=== PATIENT | male | born 1955 | race Caucasian/White ===

== ENCOUNTER → 2020-06-21 08:41 | Outpatient (CLI) | payer MEDICARE, OTHER, SELFPAY ==
--- NOTE | 2020-06-21 | DI.MRI.S_ITS ---
PROCEDURE: MR HIP RT WO CON INDICATIONS: Pain in right lower leg TECHNIQUE: Noncontrast coronal T1 spin echo and STIR through the bony pelvis. Coronal and axial T2 fast spin echo with fat saturation, sagittal T1 spin echo, and oblique axial T2 fast spin echo with fat saturation through the hip. COMPARISON: None. FINDINGS: Image quality: Excellent. Bones and joints: Bone marrow of the pelvic ring and proximal femurs show normal signal throughout. No intraosseous lesions or fractures. No avascular necrosis of the femoral heads. The visualized lower lumbar spine appears normally aligned. Tendons and ligaments: The gluteus medius and minimus tendons appear intact, without associated muscle atrophy. The nearby proximal iliotibial band also appears intact. The iliopsoas tendon appears intact, without adjacent bursal fluid collections or evidence for impingement syndrome. The origin of the hamstring tendon is intact at the ischial tuberosity, as well as the associated sacrotuberous ligament. There is mild T2 signal elevation within the conjoined tendon at the ischial origin. The straight and reflected heads of the rectus femoris muscle origin appear intact, as well as the conjoint tendon. The ligamentum teres appears intact where visualized. Labrum and cartilage: Linear high T2 signal intensity traverses the anterosuperior labrum (series 7, image 12). Cartilage surface of the femoral head appears of normal thickness. The alpha angle of the femur is within normal limits at less than 55 degrees. Soft tissues: Visualized muscles demonstrate normal bulk and internal signal. Quadratus femoris muscle demonstrates no internal edema to suggest ischiofemoral impingement. The proximal sciatic neurovascular bundle appears normal adjacent to the hamstring tendons. No free pelvic fluid. Bladder wall thickness is normal. Genitourinary structures and bowel loops appear normal where visualized. IMPRESSION: 1. Mild ischiitis. 2. No fracture or osseous lesion. 3. Anterosuperior glenoid labral tear. Dictated by: Italo Sheppard M.D. on 06/21/2020 at 10:18 Approved by: Italo Sheppard M.D. on 06/21/2020 at 10:21
== END ==
PROVIDERS: PCP Physician Assistant; Referring Provider Internal Medicine; Visit Provider Internal Medicine
DX: M79.661 Pain in right lower leg (principal); S73.191A Other sprain of right hip, initial encounter; M25.851 Other specified joint disorders, right hip
CPT/HCPCS: 73721

== ENCOUNTER 2020-10-28 10:56 | Emergency (ER) | payer MEDICARE, OTHER, SELFPAY ==
[2020-10-28] VITALS (15 sets, daily range): BP systolic 114–136; BP diastolic 79–92; PULSE 68–83; RESP 12–16; TEMP 36.4; O2SAT 95–100
--- NOTE | 2020-10-28 11:09 | ED_ITS ---
HPI - Extremity Problem General Chief complaint: Extremity Problem,Nontraumatic Stated complaint: clemente leg pain Time Seen by Provider: 10/28/20 11:06 Source: patient and EMS Mode of arrival: EMS Limitations: no limitations History of Present Illness HPI Narrative: Patient is a 65-year-old male who has had progressive leg weakness on going for about 3 weeks. He has an LP last week and since then his legs have gotten weaker. Today he tried to get out of bed and was unable to do so. He has had some urinary incontinence as well. He says he thinks he can feel when he needs to go to the restroom but because his legs are so week he does not make it. He feels sharp shooting pains going down his legs bilaterally which are worse with movement and touch. His right leg is worse than his left leg. He states his feet are cold but they have been cold for some time there are not any worse today Related Data Home Medications Medication Instructions Recorded Confirmed ALPRAZOLAM 1 mg PO BID #0 01/09/11 ASPIRIN (Aspirin Low Dose) 81 mg PO #0 01/09/11 Metoprolol Succinate (Toprol Xl) 200 mg PO Q DAY #0 01/09/11 Sertraline Hydrochloride (Zoloft) 100 mg PO Q DAY #0 01/09/11 Simvastatin (Zocor) 20 mg PO HS #0 01/09/11 [MICARDIS] mg PO Q DAY #0 01/09/11 Allergies Allergy/AdvReac Type Severity Reaction Status Date / Time No Known Drug Allergies Allergy Verified 10/28/20 11:04 Review of Systems Review of Systems ROS Unobtainable: All systems reviewed & are unremarkable except as noted in HPI and below Constitutional Constitutional: Denies chills, Denies fever(s), Denies lethargy and Reports weakness Eyes Eyes: Denies change in vision, Denies eye discharge, Denies irritation and Denies loss of vision ENT Ears, Nose, Mouth, and Throat: Denies change in voice, Denies neck pain and Denies sore throat Cardiovascular Cardiovascular: Denies chest pain, Denies irregular heart rhythm, Denies lightheadedness, Denies palpitations, Denies dyspnea, Denies dyspnea on exertion and Denies orthopnea Respiratory Respiratory: Denies cough, Denies dyspnea, Denies dyspnea on exertion and Denies wheezing Gastrointestinal Gastrointestinal: Denies abdominal pain, Reports change in bowel habits (no BM for 4 days), Denies diarrhea, Denies nausea and Denies vomiting Genitourinary Genitourinary: Reports as per HPI and Reports urinary incontinence Genitourinary: Reports as per HPI and Reports urinary incontinence Musculoskeletal Musculoskeletal: Reports abnormal gait, Reports muscle weakness, Denies neck pain and Reports numbness Integumentary/Breasts Skin/Breast: Denies pruritus, Denies erythema, Denies rash and Denies wounds Neurologic Neurologic: Reports abnormal gait, Denies loss of vision, Reports numbness, Reports paresthesias and Reports weakness Endocrine Endocrine: Denies palpitations Allergic/Immunologic Allergic/Immunologic: Denies wheezing Patient History Social History Smoking Status: Never smoker Smoking Status: Never smoker alcohol intake frequency: 3 or more drinks per day Alcohol type: beer Exam Initial Vital Signs Initial Vital Signs: Vital Signs Temperature 97.6 F 10/28/20 10:59 Pulse Rate 79 10/28/20 10:59 Respiratory Rate 16 10/28/20 10:59 Blood Pressure 132/92 H 10/28/20 10:59 Pulse Oximetry 100 10/28/20 10:59 GENERAL: Well-appearing, well-nourished and in no acute distress. HEENT: Head atraumatic,EOMI, pupils reactive, face symmetric, moist mucous membranes CARDIOVASCULAR: Regular rate and rhythm without murmurs, rubs or gallops. RESPIRATORY: Breath sounds equal bilaterally, no wheezes rales or rhonchi. ABDOMEN: Soft, nontender. Normoactive bowel sounds all 4 quadrants. No guarding or rebound. EXTREMITIES: Normal range of motion, no clubbing or edema. Neurovascularly intact Both feet are extremely cold but he does have palpable pulses. Some sores and c ontusions are noted on feet but no gross bony deformity NEUROLOGICAL: Alert and oriented x4. Significant weakness of the right leg unable to lift off the gurney. Left leg able to barely lift and hold for 5 seconds. Extreme pain with touch bilateral. Hyper reflexive and bilateral lower extremities. Sensation in trunk equal bilaterally SKIN: Warm, dry, no laceration, no petechiae, no rashes or lesions. Course Orders Ordered: ED Orders 10/28/20 11:09 MR lumbar spine wo/w con Stat 10/28/20 11:11 C-Reactive Protein Quant Stat Complete Blood Count AUTO DIFF Stat Comprehensive Metabolic Panel Stat Erythrocyte Sedimentation Rate Stat Partial Thromboplastin Time Stat Prothrombin Time INR Stat 10/28/20 11:32 MR thoracic spine wo/w con Stat 10/28/20 14:47 Consult to [employer] - Trust Operations Assistant Stat Consult to Physical Therapy Evaluate & Treat 10/28/20 14:59 CT head/brain wo con Stat 10/28/20 15:00 COVID19 Stat Discontinued Medications Albuterol (Albuterol Hfa Prepack) 1 box MISC SEEINSTR ONE Stop: 10/28/20 16:00 Vital Signs Vital signs: Vital Signs - 8 hr 10/28/20 10:59 10/28/20 11:00 10/28/20 11:30 Temperature 97.6 F Pulse Rate 79 68 Respiratory Rate 16 Blood Pressure 132/92 H 134/92 H 136/90 Pulse Oximetry 100 95 10/28/20 13:12 10/28/20 13:30 10/28/20 14:00 Temperature Pulse Rate 83 79 73 Respiratory Rate Blood Pressure Pulse Oximetry 96 97 97 10/28/20 14:13 10/28/20 14:30 10/28/20 15:00 Temperature Pulse Rate 79 70 73 Respiratory Rate Blood Pressure 117/82 114/79 121/80 Pulse Oximetry 97 98 97 10/28/20 15:30 10/28/20 16:00 10/28/20 16:30 Temperature Pulse Rate 79 83 79 Respiratory Rate Blood Pressure Pulse Oximetry 95 99 98 10/28/20 17:33 Temperature Pulse Rate 78 Respiratory Rate 14 Blood Pressure 121/80 Pulse Oximetry 96 MDM - Extremity (Nontraumatic) Lab Data Result diagrams: 10/28/20 11:11 10/28/20 11:11 Labs: Lab Results 10/28/20 10/28/20 10/28/20 Range/Units 11:11 11:11 11:11 WBC 6.1 (4.5-11.0) X10^3/uL RBC 4.19 L (4.5-5.9) X10^6/uL Hgb 14.3 (13.5-17.5) g/dL Hct 40.5 L (41-53) % MCV 96.5 (80-100) fL MCH 34.1 H (26-34) PG MCHC 35.4 (30-36) % RDW 12.5 (11.6-14.8) % Plt Count 181 (150-400) X10^3/uL Neut % (Auto) 65.9 (50-75) % Lymph % (Auto) 26.3 (25-40) % [place] % (Auto) 6.3 (3-14) % Eos % (Auto) 0.8 L (2-4) % Baso % (Auto) 0.7 (0-2) % Neut # (Auto) 4000 (8076-8350) /uL Lymph # (Auto) 1600 (1150-8693) /uL [place] # (Auto) 400 (0-900) /uL Eos # (Auto) 0 (0-450) /uL Baso # (Auto) 0 (0-100) /uL ESR (0-15) MM/HR PT 13.1 H (10.1-12.7) SECONDS INR 1.1 (0.9-1.3) APTT 32 (26.4-36.2) SECONDS Sodium 140 (137-145) mmol/L Potassium 3.8 (3.4-5.1) mmol/L Chloride 105 (98-107) mmol/L Carbon Dioxide 28 (22-32) mmol/L BUN 28 H (9-20) mg/dL Creatinine 0.88 (0.66-1.25) mg/dL Estimated GFR > 60.0 (>60) mL/min BUN/Creatinine Ratio 31.8 H (6-22) Glucose 100 (80-110) mg/dL Calcium 9.9 (8.4-10.2) mg/dL Total Bilirubin 0.7 (0.2-1.3) mg/dL AST 27 (17-59) IU/L ALT 23 (<50) IU/L Alkaline Phosphatase 47 (38-126) U/L C-Reactive Protein (<1.0) mg/dL Total Protein 8.1 (6.3-8.2) g/dL Albumin 4.6 (3.5-5.0) g/dL Globulin 3.5 (1.7-4.1) g/dL Albumin/Globulin Ratio 1.3 (1.0-2.8) COVID-19 PCR (Negative) 10/28/20 10/28/20 10/28/20 Range/Units 11:11 11:11 15:00 WBC (4.5-11.0) X10^3/uL RBC (4.5-5.9) X10^6/uL Hgb (13.5-17.5) g/dL Hct (41-53) % MCV (80-100) fL MCH (26-34) PG MCHC (30-36) % RDW (11.6-14.8) % Plt Count (150-400) X10^3/uL Neut % (Auto) (50-75) % Lymph % (Auto) (25-40) % [place] % (Auto) (3-14) % Eos % (Auto) (2-4) % Baso % (Auto) (0-2) % Neut # (Auto) (2859-5255) /uL Lymph # (Auto) (4991-1002) /uL [place] # (Auto) (0-900) /uL Eos # (Auto) (0-450) /uL Baso # (Auto) (0-100) /uL ESR 25 H (0-15) MM/HR PT (10.1-12.7) SECONDS INR (0.9-1.3) APTT (26.4-36.2) SECONDS Sodium (137-145) mmol/L Potassium (3.4-5.1) mmol/L Chloride (98-107) mmol/L Carbon Dioxide (22-32) mmol/L BUN (9-20) mg/dL Creatinine (0.66-1.25) mg/dL Estimated GFR (>60) mL/min BUN/Creatinine Ratio (6-22) Glucose (80-110) mg/dL Calcium (8.4-10.2) mg/dL Total Bilirubin (0.2-1.3) mg/dL AST (17-59) IU/L ALT (<50) IU/L Alkaline Phosphatase (38-126) U/L C-Reactive Protein < 0.5 (<1.0) mg/dL Total Protein (6.3-8.2) g/dL Albumin (3.5-5.0) g/dL Globulin (1.7-4.1) g/dL Albumin/Globulin Ratio (1.0-2.8) COVID-19 PCR Negative (Negative) Urine Dip Bedside Urine Glucose Negative Bedside Urine Bilirubin - Negative Bedside Urine Ketone - Negative Urine Specific [place] 1.025 Bedside Urine Occult Blood - Negative Bedside Urine pH 6.0 Bedside Urine Protein - Negative Bedside Urine Urobilinogen - Negative Bedside Urine Nitrite - Negative Bedside Urine Leukocytes - Negative Esterase Imaging Data MR Lumbar: Radiologist's Impression: PROCEDURE: MR LUMBAR SPINE WO/W CON INDICATIONS: weak legs urinary incontinence with recent LP TECHNIQUE: Noncontrast sagittal T1 spin echo and T2 fast spin echo, sagittal STIR, axial T1 and T2 fast spin echo through the lumbar spine. In cases with scoliosis, additional coronal T2 fast spin echo may be performed. After the administration of contrast, sagittal and axial T1 spin echo with fat saturation through the lumbar spine. COMPARISON: Same day thoracic spine MRI.. FINDINGS: Image quality: Excellent. Alignment and curvature: There is minimal anterolisthesis of L4 on L5 and retrolisthesis of L5 on S1. Marrow: Degenerative-type marrow signal at L5-S1 which is predominantly fatty and sclerotic.. No acute vertebral body compression fractures. No suspicious ma rrow enhancement. Spinal cord: Conus medullaris terminates at the superior aspect of T2 level. Visualized spinal cord demonstrates normal signal, without suspicious enhancement. No evidence of an epidural hematoma or suspicious fluid collection. Paraspinous soft tissues: No paravertebral masses or abnormal enhancement. L1-L2: No significant spinal canal or neural foraminal stenosis. L2-L3: Shallow disc bulging eccentric to the left with mild facet arthropathy and ligamentum flavum hypertrophy resulting in mild spinal canal and lateral recess stenosis. There is mild left and no significant right neural foraminal stenosis. L3-L4: Diffuse disc bulging with facet arthropathy and ligamentum flavum hypertrophy resulting in moderate to marked spinal canal and lateral recess stenosis. There is moderate neural foraminal stenosis bilaterally. L4-L5: There is diffuse disc bulging with facet arthropathy and ligamentum flavum hypertrophy resulting in marked spinal canal and lateral recess stenosis. There is moderate neural foraminal stenosis. L5-S1: Disc bulging with superimposed central to left subarticular disc extrusion with caudal migration resulting in mild left lateral recess stenosis. There is marked left and moderate right neural foraminal stenosis. IMPRESSION: Multilevel lumbar spondylosis as described above. There is marked spinal canal stenosis posterior to L4-5 as well as moderate to marked spinal canal stenosis posterior to L3 with L4 and mild spinal canal stenosis posterior to L2-L3. There is marked left neural foraminal stenosis at L5-S1 with moderate neural foraminal stenosis on the right at L5-S1, bilaterally at L4-L5, L3-L4, and mild left neural foraminal stenosis at L2-L3. Grade 1 anterolisthesis of L4 on L5 and retrolisthesis of L5 on S1. No evidence of epidural hematoma or suspicious soft tissue fluid collection. No acute osseous abnormality or suspicious osseous lesion. Dictated by: Renato Jones D.O. on 10/28/2020 at 13:32 MR Thoracic: Radiologist's Impression: PROCEDURE: MR LUMBAR SPINE WO/W CON INDICATIONS: weak legs urinary incontinence with recent LP TECHNIQUE: Noncontrast sagittal T1 spin echo and T2 fast spin echo, sagittal STIR, axial T1 and T2 fast spin echo through the lumbar spine. In cases with scoliosis, additional coronal T2 fast spin echo may be performed. After the administration of contrast, sagittal and axial T1 spin echo with fat saturation through the lumbar spine. COMPARISON: Same day thoracic spine MRI.. FINDINGS: Image quality: Excellent. Alignment and curvature: There is minimal anterolisthesis of L4 on L5 and retrolisthesis of L5 on S1. Marrow: Degenerative-type marrow signal at L5-S1 which is predominantly fatty and sclerotic.. No acute vertebral body compression fractures. No suspicious marrow enhancement. Spinal cord: Conus medullaris terminates at the superior aspect of T2 level. Visualized spinal cord demonstrates normal signal, without suspicious enhancement. No evidence of an epidural hematoma or suspicious fluid collection. Paraspinous soft tissues: No paravertebral masses or abnormal enhancement. L1-L2: No significant spinal canal or neural foraminal stenosis. L2-L3: Shallow disc bulging eccentric to the left with mild facet arthropathy and ligamentum flavum hypertrophy resulting in mild spinal canal and lateral recess stenosis. There is mild left and no significant right neural foraminal stenosis. L3-L4: Diffuse disc bulging with facet arthropathy and ligamentum flavum hypertrophy resulting in moderate to marked spinal canal and lateral recess stenosis. There is moderate neural foraminal stenosis bilaterally. L4-L5: There is diffuse disc bulging with facet arthropathy and ligamentum flavum hypertrophy resulting in marked spinal canal and lateral recess stenosis. There is moderate neural foraminal stenosis. L5-S1: Disc bulging with superimposed central to left subarticular disc extrusion with caudal migration resulting in mild left lateral recess stenosis. There is marked left and moderate right neural foraminal stenosis. IMPRESSION: Multilevel lumbar spondylosis as described above. There is marked spinal canal stenosis posterior to L4-5 as well as moderate to marked spinal canal stenosis posterior to L3 with L4 and mild spinal canal stenosis posterior to L2-L3. There is marked left neural foraminal stenosis at L5-S1 with moderate neural foraminal stenosis on the right at L5-S1, bilaterally at L4-L5, L3-L4, and mild left neural foraminal stenosis at L2-L3. Grade 1 anterolisthesis of L4 on L5 and retrolisthesis of L5 on S1. No evidence of epidural hematoma or suspicious soft tissue fluid collection. No acute osseous abnormality or suspicious osseous lesion. Dictated by: Renato Jones D.O. on 10/28/2020 at 13:32 CT scan - head: Radiologist's Impression: PROCEDURE: CT HEAD/BRAIN WO CON INDICATIONS: inability to walk TECHNIQUE: Noncontrast 4.5 mm thick angled axial sections acquired from the foramen magnum to the vertex, with coronal and sagittal reformats. For radiation dose reduction, the following was used: automated exposure control, adjustment of mA and/or kV according to patient size. COMPARISON: None. FINDINGS: Image quality: Excellent. CSF spaces: Ventricles and extra-axial CSF spaces are appropriate for patient's age. No focal fluid collection. Brain: No midline shift. No intracranial masses or hemorrhage. Scattered foci of white matter hypoattenuation consistent with microvascular ischemic changes. Cha- white matter interface is normal. Skull and face: Calvarium and visualized facial bones are intact, without suspicious lesions. Sinuses: Visualized sinuses and mastoids are clear. IMPRESSION: Findings suggestive of mild microvascular ischemic changes without evidence of transcortical infarction or other acute intracranial abnormality. Dictated by: Renato Jones D.O. on 10/28/2020 at 14:33 MDM Narrative Medical decision making narrative: Patient lives alone and is clearly unable to ambulate or move his lower extremities. He has pulses in his feet don't think vascular occlusion at this time. He is extremely sensitive to touch she has sharp shooting nerve like pain. This seems to have been progressive decline initially they thought it was MS but due to the history it is not clinically correlate with MS. However over the last 1 week it has expanded actually gotten worse. At this time is unsafe to send patient home. Patient is being followed by a it seems to be Neurology and [facility]oped[facility] at [facility] in [place]. 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 I have updated urine patient's test results and symptoms at this time she recommends talking with Neurosurgery. [id number]-Dr. Olivo neuro surgery reviewed images but did not review chart states no need for any emergent surgery is happy to consult if transferred to [place] [id number] Dr. Gilbert updated on neuro surgery happy to accept Discharge Plan Departure Patient Disposition: [facility] Clinical Impression: Bilateral leg weakness, Spinal stenosis Prescriptions: No Action ALPRAZOLAM 1 mg PO BID Qty: 0 RF: 0 Sertraline Hydrochloride (Zoloft) 100 mg PO Q DAY Qty: 0 RF: 0 Metoprolol Succinate (Toprol Xl) 200 mg PO Q DAY Qty: 0 RF: 0 [MICARDIS] PO Q DAY Qty: 0 RF: 0 Simvastatin (Zocor) 20 mg PO HS Qty: 0 RF: 0 ASPIRIN (Aspirin Low Dose) 81 mg PO Qty: 0 RF: 0
[2020-10-28 11:23] LABS: Add Manual Diff / Slide Review NO; Basophils Absolute Auto 0 /uL (0-100); Basophils Percent Auto 0.7 % (0-2); Eosinophils Absolute Auto 0 /uL (0-450); Eosinophils Percent Auto 0.8 % (2-4); Hematocrit 40.5 % (41-53); Hemoglobin 14.3 g/dL (13.5-17.5); Lymphocytes Absolute Auto 1600 /uL (1100-4500); Lymphocytes Percent Auto 26.3 % (25-40); Mean Corpuscular HGB Conc 35.4 % (30-36); Mean Corpuscular Hemoglobin 34.1 PG (26-34); Mean Corpuscular Volume 96.5 fL (80-100); Monocytes Absolute Auto 400 /uL (0-900); Monocytes Percent Auto 6.3 % (3-14); Neutrophils Absolute Auto 4000 /uL (1500-7000); Neutrophils Percent Auto 65.9 % (50-75); Platelet Count 181 X10^3/uL (150-400); Red Blood Cell Count 4.19 X10^6/uL (4.5-5.9); Red Cell Distribution Width 12.5 % (11.6-14.8); White Blood Cell Count 6.1 X10^3/uL (4.5-11.0)
[2020-10-28 11:26] LABS: INR 1.1 (0.9-1.3); Prothrombin Time 13.1 SECONDS (10.1-12.7)
[2020-10-28 11:29] LABS: PTT Partial Thromboplastin Tim 32 SECONDS (26.4-36.2)
--- NOTE | 2020-10-28 11:32 | DI.MRI.S_ITS ---
PROCEDURE: MR THORACIC SPINE WO/W CON INDICATIONS: numbness in trunk TECHNIQUE: Noncontrast sagittal T1 spin echo and T2 fast spin echo, sagittal STIR, axial T1 and T2 fast spin echo through the thoracic spine. After the administration of contrast, axial and sagittal T1 spin echo with fat saturation through the thoracic spine. COMPARISON: None. FINDINGS: Image quality: Excellent. Alignment and curvature: There is anterolisthesis of C7 on T1 of approximately 6 millimeters. Marrow: There is a T2 and T1 hyperintense lesion within the T10 vertebral body measuring up to 1.5 centimeters in greatest diameter. No adjacent osseous abnormality. In addition there is mild T2 and T1 hyperintensity along the inferior aspect of T12. No acute vertebral body compression fractures. Postsurgical changes of anterior fusion of C5-C6. No suspicious enhancement on post-contrast images. Spinal cord: Visualized spinal cord is of normal signal and size, without abnormal enhancement. Paraspinous soft tissues: No paravertebral masses or abnormal enhancement. Miscellaneous: C7-T1: Anterolisthesis with unroofing of the intervertebral disc space with posterior disc bulging. There is moderate to marked spinal canal narrowing as well as marked bilateral neural foraminal stenosis. T1-T2: Left subarticular to foraminal disc protrusion without significant spinal canal stenosis. There is moderate to marked left neural foraminal stenosis. T2-T3: There is central disc protrusion causing mild narrowing of the spinal canal and effacement of the ventral spinal cord. Mild left and no significant right neural foraminal stenosis. T3-T4: No significant spinal canal or lateral recess stenosis. T4-T5: No significant spinal canal or neural foraminal stenosis. T5-T6: No significant spinal canal or neural foraminal stenosis. T6-T7: There is a right central disc protrusion with effacement of the ventral spinal cord. No significant neural foraminal stenosis. T7-T8: No significant spinal canal or neural foraminal stenosis T8-T9: Left subarticular disc protrusion without significant spinal canal or neural foraminal stenosis. T9-T10: Shallow right central disc protrusion without significant spinal canal or neural foraminal stenosis. T10-T11: Shallow disc bulging without significant spinal canal or neural foraminal stenosis. T11-T12: Shallow disc bulging without significant spinal canal or lateral recess stenosis. T12-L1: No significant spinal canal or neural foraminal stenosis. IMPRESSION: No acute fracture. Multilevel degenerative changes of the imaged cervical and thoracic spine. There is moderate to marked spinal canal and bilateral lateral recess stenosis at C7-T1. There is mild spinal canal stenosis at T2-T3. In addition there is moderate to marked left neural foraminal stenosis at T1-T2 and mild left neural foraminal stenosis at T2-T3. 4 millimeters of anterolisthesis of C7 on T1. Fat containing lesions within the T10 and T12 vertebral bodies likely representing intraosseous hemangiomas. Dictated by: Renato Jones D.O. on 10/28/2020 at 13:18 Approved by: Renato Jones D.O. on 10/28/2020 at 13:32
[2020-10-28 11:33] LABS: Alanine Aminotransferase 23 IU/L (<50); Albumin 4.6 g/dL (3.5-5.0); Albumin Globulin Ratio 1.3 (1.0-2.8); Alkaline Phosphatase 47 U/L (38-126); Aspartate Aminotransferase 27 IU/L (17-59); BUN Creatinine Ratio 31.8 (6-22); Bilirubin Total 0.7 mg/dL (0.2-1.3); Blood Urea Nitrogen 28 mg/dL (9-20); Calcium 9.9 mg/dL (8.4-10.2); Carbon Dioxide 28 mmol/L (22-32); Chloride 105 mmol/L (98-107); Estimated Glomerular Filt Rate > 60.0 mL/min (>60); Globulin 3.5 g/dL (1.7-4.1); Glucose 100 mg/dL (80-110); HEMOLYSIS < 15 (0-50); Potassium 3.8 mmol/L (3.4-5.1); Sodium 140 mmol/L (137-145); Total Protein 8.1 g/dL (6.3-8.2)
[2020-10-28 11:37] LABS: C-Reactive Protein Quant < 0.5 mg/dL (<1.0)
--- NOTE | 2020-10-28 13:57 | PC.NURSE ---
Assisted pt with the use of a urinal. pt stated that he wasnt sure if he had urinated due to loss of feeling. Pt denied any incontinence however, after urinal was removed pt continued to urinate unknowingly. LUIS Braswell and Dr Veloz are aware. Post void bladder scan was performed and showed 100ml of urine left in bladder
[2020-10-28 14:25] LABS: Erythrocyte Sedimentation Rate 25 MM/HR (0-15)
--- NOTE | 2020-10-28 14:59 | DI.CT.S_ITS ---
PROCEDURE: CT HEAD/BRAIN WO CON INDICATIONS: inability to walk TECHNIQUE: Noncontrast 4.5 mm thick angled axial sections acquired from the foramen magnum to the vertex, with coronal and sagittal reformats. For radiation dose reduction, the following was used: automated exposure control, adjustment of mA and/or kV according to patient size. COMPARISON: None. FINDINGS: Image quality: Excellent. CSF spaces: Ventricles and extra-axial CSF spaces are appropriate for patient's age. No focal fluid collection. Brain: No midline shift. No intracranial masses or hemorrhage. Scattered foci of white matter hypoattenuation consistent with microvascular ischemic changes. Cha-white matter interface is normal. Skull and face: Calvarium and visualized facial bones are intact, without suspicious lesions. Sinuses: Visualized sinuses and mastoids are clear. IMPRESSION: Findings suggestive of mild microvascular ischemic changes without evidence of transcortical infarction or other acute intracranial abnormality. Dictated by: Renato Jones D.O. on 10/28/2020 at 14:33 Approved by: Renato Jones D.O. on 10/28/2020 at 14:43
[2020-10-28 15:20] LABS: COVID19 -Nasal RAPID Negative (Negative)
== END 2020-10-28 18:53 | disposition short-term general hospital (02) ==
PROVIDERS: Emergency Provider Emergency Medicine
DX: M48.04 Spinal stenosis, thoracic region (principal); M48.07 Spinal stenosis, lumbosacral region; R20.0 Anesthesia of skin; R29.898 Other symptoms and signs involving the musculoskeletal system; R19.4 Change in bowel habit
CPT/HCPCS: 51798; 70450; 72157; 72158; 80053; 81003; 85025; 85610; 85651; 85730; 86140; 87635; 99284; A9579